=== PATIENT | male | born 1965 | race Caucasian/White ===

== ENCOUNTER 2016-08-07 10:51 | Emergency (ER) | payer MEDICARE, MEDICAID ==
[~2016-08-07] VITALS: Ht 175.3 cm; Wt 106.0 kg
[~2016-08-07 10:51] MED LIST: BACIO TP; FOLI1 PO; MULT-29 PO; SERT100T PO; SERT100T12 PO; THIA100 PO; VITAD1000 PO
[2016-08-07] MEDS ORDERED: LORATADINE 10 MG TABLET PO ONE (13:00)
[2016-08-07] MEDS ORDERED: OxyCODONE HCL/ACETAMINOPHEN 5-325 MG TABLET PO ONE (13:15)
[2016-08-07] MEDS ORDERED: PERMETHRIN 5% 60 GM CREAM TP ONE (14:00)
[2016-08-07 15:05] VITALS: BP 127/77
== END 2016-08-07 15:08 | disposition home or self-care (01) ==
LOC: EMS 10:57
DX: B86 Scabies (principal); M25.571 Pain in right ankle and joints of right foot; F17.210 Nicotine dependence, cigarettes, uncomplicated; Z88.6 Allergy status to analgesic agent
CPT/HCPCS: 29515; 99284

== ENCOUNTER 2017-10-29 09:10 | Emergency (ER) | payer MEDICARE, MEDICAID ==
[~2017-10-29] VITALS: Ht 180.3 cm; Wt 90.9 kg
[~2017-10-29 09:10] MED LIST changes: -BACIO TP; -SERT100T PO; -THIA100 PO; +THIA100T67 PO
[2017-10-29] MEDS ORDERED: [UNRECOGNIZED DRUG - CODE] TD (09:18)
[2017-10-29] MEDS ORDERED: LACT30L PO (09:18)
[2017-10-29] MEDS ORDERED: RIFAX550 PO (09:18)
[2017-10-29] MEDS ORDERED: HYDROCODONE/ACETAMINOPHEN 5-325 MG TABLET PO ONE (11:00)
[2017-10-29 11:29] VITALS: BP 118/61
== END 2017-10-29 11:31 | disposition home or self-care (01) ==
LOC: EMS 09:11
DX: M54.5 Low back pain (principal); G89.29 Other chronic pain; F17.210 Nicotine dependence, cigarettes, uncomplicated; Z88.6 Allergy status to analgesic agent
CPT/HCPCS: 99283

== ENCOUNTER 2017-12-18 17:21 | Emergency (ER) | payer MEDICARE, MEDICAID ==
[~2017-12-18] VITALS: Ht 175.3 cm; Wt 90.9 kg
[~2017-12-18 17:21] MED LIST changes: +LACT30L PO; -MULT-29 PO; +RIFAX550 PO; -THIA100T67 PO; -VITAD1000 PO; +[UNRECOGNIZED DRUG - CODE] TD
[2017-12-18 19:16] LABS: BASOPHILS % (AUTO) 0.7 % (0.0-2.0); EOSINOPHILS % (AUTO) 3.8 % (1.0-6.0); HEMATOCRIT 26.4 % (41-53); HEMOGLOBIN 8.9 g/dL (13.5-17.5); LYMPHOCYTES # (AUTO) 0.9 K/uL (1.0-4.8); LYMPHOCYTES % (AUTO) 29.7 % (22.0-44.0); MEAN CORPUSCULAR HEMOGLOBIN 30.6 pg (26.0-34.0); MEAN CORPUSCULAR HGB CONC 33.8 G/dL (31.0-37.0); MEAN CORPUSCULAR VOLUME 91 fL (80-100); MONOCYTES # (AUTO) 0.3 K/uL (0.1-1.0); MONOCYTES % (AUTO) 10.5 % (2.0-9.0); NEUTROPHILS # (AUTO) 1.6 K/uL (1.8-7.7); NEUTROPHILS % (AUTO) 55.3 % (40.0-70.0); RED BLOOD CELL COUNT(AUTO) 2.91 MIL/uL (4.50-5.90); RED CELL DISTRIBUTION WIDTH 18.7 % (11.5-14.5)
[2017-12-18 19:19] LABS: ANION GAP 2 mmol/L (8-16); CARBON DIOXIDE 30 mmol/L (22-29); CHLORIDE 105 mmol/L (98-107); CREATININE 0.95 mg/dL (0.60-1.30); GLOMERULAR FILTR. RATE CALC > 60 mL/min (>60); GLUCOSE,RANDOM 132 mg/dL (70-110); POTASSIUM 3.8 mmol/L (3.5-5.1); SODIUM SERUM 137 mmol/L (136-145); UREA NITROGEN, BLOOD 10 mg/dL (7-18)
[2017-12-18 19:28] LABS: ALANINE AMINOTRANSFERASE 32 U/L (12-78); ALBUMIN 1.4 g/dL (3.4-5.0); ALKALINE PHOSPHATASE 234 U/L (46-116); ASPARTATE AMINOTRANSFERASE 82 U/L (15-37); BILIRUBIN,TOTAL 2.2 mg/dL (0.1-1.0); TOTAL PROTEIN, SERUM 6.3 g/dL (6.4-8.2)
[2017-12-18 19:38] LABS: B-TYPE NATRIURETIC PEPTIDE 188 pg/mL (0-100)
[2017-12-18 19:50] LABS: PLATELET COUNT (AUTO) 50 K/uL (150-450)
[2017-12-18 21:14] LABS: APPEARANCE,URINE CLEAR (CLEAR); GLUCOSE, URINE (UA) NEGATIVE (NEGATIVE); KETONES,URINE TRACE mg/dL (NEGATIVE); LEUKOCYTE ESTERASE ,URINE NEGATIVE (NEGATIVE); NITRATE,URINE NEGATIVE (NEGATIVE); OCCULT BLOOD,URINE TRACE (NEGATIVE); PROTEIN,URINE NEGATIVE (NEGATIVE); UROBILINOGEN,URINE 0.2 mg/dL (<=1.0)
[2017-12-18] MEDS ORDERED: HYDROCODONE/ACETAMINOPHEN 5-325 MG TABLET PO ONE (21:15)
[2017-12-18 21:21] LABS: AMPHET/METH SCREEN,URINE POSITIVE (NEGATIVE); BARBITURATE SCREEN, URINE NEGATIVE (NEGATIVE); BENZODIAZEPINES SCREEN,URINE NEGATIVE (NEGATIVE); CANNABINOID SCREEN,URINE NEGATIVE (NEGATIVE); COCAINE SCREEN,URINE NEGATIVE (NEGATIVE); METHADONE SCREEN, URINE POSITIVE (NEGATIVE); OPIATE SCREEN,URINE NEGATIVE (NEGATIVE)
[2017-12-18 21:25] LABS: PHENCYCLIDINE SCREEN,URINE NEGATIVE (NEGATIVE)
[2017-12-18 21:27] LABS: BILIRUBIN,URINE PRELIM. POSITIVE (NEGATIVE)
[2017-12-18 21:34] LABS: RBC,URINE 0-2 /HPF (0-2)
[2017-12-18 21:35] LABS: BACTERIA,URINE Rare /HPF (None Seen); MUCUS,URINE Few LPF (None Seen); SQUAMOUS EPITHELIAL CELL,UR Few /LPF (None Seen)
[2017-12-18 22:09] VITALS: BP 117/69
== END 2017-12-18 22:19 | disposition home or self-care (01) ==
LOC: EMS 17:22
DX: S62.393A Other fracture of third metacarpal bone, left hand, initial encounter for closed fracture (principal); K74.60 Unspecified cirrhosis of liver; F19.10 Other psychoactive substance abuse, uncomplicated; F17.210 Nicotine dependence, cigarettes, uncomplicated; F99 Mental disorder, not otherwise specified; R16.0 Hepatomegaly, not elsewhere classified; R60.9 Edema, unspecified; Z71.6 Tobacco abuse counseling; Z88.8 Allergy status to other drugs, medicaments and biological substances; Z79.2 Long term (current) use of antibiotics; Z79.899 Other long term (current) drug therapy; W01.0XXA Fall on same level from slipping, tripping and stumbling without subsequent striking against object, initial encounter; Y93.89 Activity, other specified; Y92.89 Other specified places as the place of occurrence of the external cause; Y99.8 Other external cause status
CPT/HCPCS: 99285; 99406